=== PATIENT | male | born 1995 | race Caucasian/White ===

== ENCOUNTER 2018-12-31 12:17 | Emergency (ER) | payer BC ==
[~2018-12-31 12:17] MED LIST: Bactrim 400-801 EACH PO; CEPH500 PO; IBUP800 PO; MUPI2TO TOP; SULTRIDS PO
== END 2018-12-31 12:55 | disposition left against medical advice (07) ==
LOC: ER 12:17
DX: Z53.21 Procedure and treatment not carried out due to patient leaving prior to being seen by health care provider (principal)

== ENCOUNTER → 2019-02-18 | Outpatient (CLI) | payer BC | END | disposition home or self-care (01) | LOC: LAB SHORT 17:15 → LAB 17:15 | DX: L03.113 Cellulitis of right upper limb (principal); L08.9 Local infection of the skin and subcutaneous tissue, unspecified | CPT/HCPCS: 87070; 87077; 87147; 87186; 87205 ==